=== PATIENT | male | born 1975 | race Caucasian/White ===

== ENCOUNTER 2018-10-18 07:40 | Outpatient (CLI) | payer OTHER ==
[2018-10-18] MEDS ORDERED: GADOBUTROL 10 MMOL/10 ML VIAL ONE (08:06)
[2018-10-18] MEDS ORDERED: GADOBUTROL 10 MMOL/10 ML VIAL IVP ONE (08:58)
--- NOTE | 2018-10-19 12:32 | MRI Report ---
Reason: LOCALIZED SWELLING, MASS LUMP, LEFT UPPER LIMB Procedure Date: 10/18/2018 Accession Number: [id number] / [id number] Procedure: MRI - Hand LT W/WO CPT Code: FULL RESULT: EXAM: LEFT HAND MRI WITHOUT AND WITH CONTRAST EXAM DATE: 10/18/2018 09:13 AM. CLINICAL HISTORY: Localized swelling or mass in the left upper limb. COMPARISON: None. TECHNIQUE: Multiplanar, multisequence T1-weighted and fluid-sensitive sequences of the hand before and after administration of intravenous contrast. IV contrast: 10 mL Gadavist. Other: None. FINDINGS: Bones: No fractures or subluxations. No marrow edema or abnormal enhancement. No bone lesions. Cartilage: The articular cartilage is unremarkable. Ligaments: The visualized collateral ligaments are intact. Tendons: The flexor and extensor tendons are unremarkable. Musculature: No edema or fatty atrophy. Other: No joint effusions or synovitis. A T2 hyperintense nodule volar to the second metacarpophalangeal joint measures 5 mm. This only has peripheral rim enhancement as it is consistent with a small ganglion cyst. IMPRESSION: 5 mm ganglion cyst volar to the second metacarpophalangeal joint. [facility]CULOSKELET[facility] RADIOLOGY SECTION
== END 2018-10-18 07:41 | disposition home or self-care (01) ==
LOC: DI 07:40
PROVIDERS: ATTEND Orthopaedic Surgery
DX: M67.442 Ganglion, left hand (principal)
CPT/HCPCS: 73220; A9585

== ENCOUNTER 2018-12-22 08:47 | Day surgery (SDC) | payer OTHER ==
[~2018-12-22 08:47] MED LIST: CLINDAMYCIN 600 MG/50 ML 50 ML IV ONE
[2018-12-22] MEDS ORDERED: LACTATED RINGERS 1,000 ML IV ONE (08:57)
--- NOTE | 2018-12-22 09:51 | ANESTHESIA ---
Pre-Anesthesia VS, & Labs - Diagnosis left index finger cyst - Procedure cystectomy left index finger Vital Signs: Temp Pulse Resp BP Pulse Ox 36 C L 72 16 124/79 98 12/22/18 08:58 12/22/18 08:58 12/22/18 08:58 12/22/18 08:58 12/22/18 08:58 Height 5 ft 10 in Weight (kg) 88 kg - NPO >8 hours Home Medications and Allergies Home Medications: Ambulatory Orders Citalopram Hydrobromide [Celexa] 20 mg PO DAILY 12/13/18 Varenicline Tartrate [Chantix] 1 mg PO DAILY 12/13/18 Citalopram Hydrobromide [Celexa] 20 mg PO DAILY 12/13/18 Varenicline Tartrate [Chantix] 1 mg PO DAILY 12/13/18 Allergies/Adverse Reactions: Allergies Allergy/AdvReac Type Severity Reaction Status Date / Time iodine Allergy Rash Verified 12/13/18 13:45 shellfish derived Allergy Rash Verified 12/13/18 13:45 Penicillins AdvReac Unknown Verified 12/13/18 13:45 Anes History & Medical History - Anesthetic History Anesthesia Complications: reports: No previous complications Family history of Anesthesia Complications: Denies Family history of Malignant Hyperthermia: Denies - Medical History Cardiovascular: reports: None Pulmonary: reports: None Gastrointestinal: reports: None Urinary: reports: None Musculoskeletal: reports: Other Skin: reports: None - Surgical History General: Other Eyes Ears Nose Throat (EENT): Myringotomy (tubes) Exam General: Alert, Oriented x3, Cooperative, No acute distress Dental: Other (caps) Mouth Openin Fingerbreadth Neck Mobility: Normal Mallampati classification: II Thyromental Distance: greater than 6 cm Respiratory: Lungs clear, Normal breath sounds, No respiratory distress, No accessory muscle use Cardiovascular: Regular rate, Normal S1, Normal S2, No murmurs Mental/Cognitive Status: Alert/Oriented X3, Normal for patient Cognitive Status: Within normal limits Plan Anesthesia Type: General Consent for Procedure(s) Verified and Reviewed: Yes Code Status: Attempt Resuscitation ASA classification: 1-Healthy patient Is this case an emergency?: No
[2018-12-22] MEDS ORDERED: BUPIVACAINE 0.5% PF 30 ML VIAL ONE (09:53)
[2018-12-22] MEDS ORDERED: BUPIVACAINE 0.5% PF 30 ML VIAL INFIL ONE (10:42)
[2018-12-22] MEDS ORDERED: PROPOFOL 200 MG/20 ML VIAL IVP ONE (11:16)
[2018-12-22] MEDS ORDERED: fentaNYL 100 MCG/2 ML VIAL IVP ONE (11:16)
[2018-12-22] MEDS ORDERED: ePHEDrine 50 MG/ML VIAL IVP ONE (11:16)
[2018-12-22] MEDS ORDERED: CLINDAMYCIN 600 MG/50 ML 50 ML IV ONE (11:16)
[2018-12-22] MEDS ORDERED: LIDOCAINE-MPF 2% 5 ML VIAL IM ONE (11:16)
[2018-12-22] MEDS ORDERED: HYDROcod/ACETAM 5/325 MG TABLET PO PRN (11:26)
--- NOTE | 2018-12-22 11:45 | OPERATIVE REPORT ---
Operative Report - General Planned Procedure: Left index finger volar flexor tendon sheath cyst excision Pre-Op Diagnosis: Left index finger volar flexor tendon sheath cyst Procedure Performed: Left index finger volar flexor tendon sheath cyst excision Post Op Diagnosis: Left index finger volar flexor tendon sheath cyst - Procedure Note Primary Surgeon: TON CUNNINGHAM Secondary Surgeon: JAKI AYON Anesthesia Technique: General LMA, Local Pathology: Left index finger volar cyst sent for permanent pathology Estimated Blood Loss (mL): 5 - Other Other Information/Narrative: Tourniquet Time: 31 minutes at 250mmHg. Specimen(s) Information: Left index finger volar flexor tendon sheath cyst Complication(s): None Condition: Stable to recovery Indications for Surgery: The patient is a 43-year-old left hand dominant male with a 7 month history of a left volar hand mass. The mass appeared to overlie the volar surface of the index finger A1 miguel, on the ulnar side. Exam demonstrated a palpable, tender mass in the aforementioned location. Xrays were normal. MRI demonstrated a T2 hyperintense well-circumscribed mass just volar to the left index finger flexor tendon sheath, the mass was discrete from the ulnar neurovascular bundle of the index finger. The patient was counseled on treatment options to include continued nonoperative treatment in the form of activity modification, possible aspiration of the mass versus surgical excision. Risks of surgery were discussed to include bleeding, infection, postoperative wrist stiffness, mass recurrence, damage to nerves, vessels, tendons, ligaments, bone and cartilage and anesthesia complications to include medication side effects and allergic reactions and even . After a long discussion, they wished to proceed. Findings: Left index finger volar flexor tendon sheath cyst with clear gelatinous fluid Descriptions of Procedure: The patient was met in the Preoperative Holding Area, at which time preoperative paperwork was confirmed. The left hand was signed. The patient was then brought to Main Operating Room, placed supine on the Operating Room table, at which time pre procedure timeout was conducted to confirm correct patient, correct extremity and correct procedure and also to confirm presence and sterility of all required equipment and to confirm that antibiotics were being administered. After this was confirmed, general anesthesia was induced. The operative extremity was then prepped and draped over a hand table in the normal sterile fashion after a well-padded tourniquet was placed on the proximal arm. A final timeout was conducted to confirm the correct patient, correct extremity and correct procedure and to confirm that antibiotics had been administered within 30 minutes of incision time. The operative extremity was then exsanguinated with an Esmarch bandage and tourniquet inflated to 250mmHg. A Chevron incision with approximately 2 cm limbs was made over the left index finger A1 miguel, in the region of the distal palmar crease with a #15 blade through the skin. Dissection was further carried out with tenotomy scissors and retractors until the mass was visualized on the volar surface of the flexor tendon sheath. The mass was carefully dissected, r emoving all soft tissue attachments surrounding the mass down to the flexor tendon sheath. The mass was then excised off of the flexor tendon sheath. The mass contained homogeneous gelatinous material consistent with a ganglion cyst of the flexor tendon sheath. The mass was then passed off the back table in a sterile specimen cup fixed in formalin. A small rectangle of the A1 miguel was excised and the wound was palpated to ensure no cystic mass remained. The wound was then copiously irrigated. The skin was then closed with 4-0 nylon in interrupted horizontal mattress and simple interrupted fashion. 10 mL of half percent plain Marcaine were injected around the incision. The wound was dressed with xeroform, plain 4x4 gauze, fluffs, loosely applied jon followed by a gently compressive Lucho bandage. The tourniquet was let down. The patient was then awakened from general anesthesia without complication, brought to the Post Anesthesia Care for further recovery. Postoperative Plan: 1. The patient will be discharged from the Same Day Surgery Unit when discharge criteria are met. 2. The patient will remain in the post-operative dressing until follow-up. 3. They have been instructed to start early finger ROM and not to lift anything heavier than a cup of coffee until follow-up. 4. Expect return to full activities in 4-6 weeks.
[2018-12-22 12:05] VITALS: BP 131/75
== END 2018-12-22 08:48 | disposition home or self-care (01) ==
LOC: SDS 08:47
PROVIDERS: ATTEND Orthopaedic Surgery
PROC: 0LB80ZZ Excision of Left Hand Tendon, Open Approach (ICD-10-PCS; principal; 2018-12-22 11:00)
DX: M67.844 Other specified disorders of tendon, left hand (principal); F17.200 Nicotine dependence, unspecified, uncomplicated
CPT/HCPCS: 26160; J7120

== ENCOUNTER 2021-04-17 07:45 | Outpatient (CLI) | payer OTHER ==
--- NOTE | 2021-04-17 08:41 | SLEEP CARE CONSULTATION ---
Information from patient questionnaire entered by Jacqui Mullen. I have reviewed and concur with the information entered by Jacqui Mullen. This document represents the service I personally performed and the decisions made by me, Rosemary Martinez ARNP. History of Present Illness Service Date and Time: 04/17/2021 0745 Reason for Visit: New patient Chief Complaint: reports: Insomnia, Unrefreshed sleep, Snoring, Excessive daytime sleepiness, Frequent awakenings at night Date of Onset: mulitple years Usual bedtime: 9:30 pm Time it takes to fall asleep: 1 hour or more Snores at night: Yes Observed to quit breathing while asleep: No Sleeps alone due to snoring: Yes Number of times waking at night: 3-5 Reasons for waking at night: reports: Snoring, Other (unknown reasons). denies: Choking, Gasping for air Toss, Turn, or Twitch while sleeping: Yes Recalls having dreams: Yes Usually gets out of bed at: 5 am; weekends about 7 AM Feels refreshed in the morning: No Morning headache: No Sleepy or fatigued during the day: Yes Ever fallen asleep while driving: Yes (drowsy driving, no accidents; only on longer drives) Takes day naps: Yes (1 x a week for about 30 mins) Dreams during day naps: Yes Prior sleep studies: No Additional HPI information: I had the pleasure of seeing MARYANNE GONSALEZ today regarding the possibility of him having a sleep disorder. His current complaints are insomnia, excessive daytime sleepiness, fatigue, frequent night awakenings, snoring and unrefreshed sleep. His has told him he snores like a "freight train" and he wants to get better sleep. He states he does not wake up feeling rested most days. His was not sure if he had any pauses in breathing or choking/gasping in his sleep. He states it usually takes him an hour or so to fall asleep. He usually reads in bed before going to sleep for that time. He can wake up hourly throughout the night at times for no apparent reasons. He has woken himself up snoring. He also tells me that when he is about to fall asleep his left leg will become tense and then twitch. He states it doesn't happen every night. He states his father has sleep apnea and is on a PAP machine. - Parasomnia Symptoms Ever been unable to move upon waking from sleep: Yes Walks in sleep: No Talks in sleep: Yes Ever acted out dreams in sleep: Yes Ever felt weak in the knees when startled or emotional: No Bothered by creepy, crawly, restless sensations in legs: Yes (mostly at night, almost always the left leg, has sciatica in this leg) Problems with memory or concentration: Yes (both, memory bad these days) Subjective Initial [place] Sleepiness Scale score: 14 (in 2020) Past Medical History Past Medical History: reports: Hypertension (no medication at this time), Anxiety, GERD, Attention deficit, Other (sciatica) Social History The patient's occupation is a Active . Patient is and lives in [place]. Have you smoked in the past 12 months: Yes Cigarettes per day (20/pack): 10 Years of smokin Smoking Pack Years: 10.0 Alcohol use: Yes Alcohol amount and frequency: 1-3 drinks a week Caffeine use: Yes Caffeine amount and frequency: 12 oz 2-3 a day when working Family History Family history of sleep disordered breathing: Yes Family Hx Sleep Apnea: Father: Snoring, Sleep apnea - Treated Allergies and Home Medications Drug allergies reviewed: Yes (penicillin, iodine, shellfish) Home medication list reviewed: Yes Allergy and home medication list: Celexa Multivitamin Pepcid, as needed for heartburn Review of Systems Weight gain over past 5 years: 20 Cardiovascular: reports: high blood pressure Gastrointestinal: reports: heartburn Neurological: denies: headaches Psychiatric: reports: Attention Deficit Hyperactivity, anxiety. denies: mood disorder Ear/Nose/Throat: reports: wisdom teeth removed. denies: tonsillectomy Endocrine: denies: thyroid disease Musculoskeletal: reports: joint pain, back pain, other (sciatica) Immunologic: reports: allergies to food or environment (shellfish) Physical Exam Blood Pressure: 135/92 Cuff size: wrist Heart Rate: 90 O2 Saturation: 98 Height: 5 ft 10 in Weight: 210 lb (with boots) Body Mass Index: 30.1 BMI Classification: Obese Neck circumference: 17 (inches) Mouth and throat: narrow oropharynx Soft palate: long Hard palate: normal Uvula: normal Uvula visualization: 50% Mallampati Class II Tongue: enlarged in size with teeth starr on lateral edges Tonsils: 1+ Neck: normal w/o lymphadenopathy or thyromegaly Heart: regular rate and rhythm Lungs: clear bilaterally Impression and Plan 1. Suspected Obstructive Sleep Apnea-Hypopnea Syndrome, as suggested by a history of loud and irregular snoring, frequent awakening during the night, unrefreshed sleep, cognitive impairment, and excessive daytime sleepiness. Narrow oropharynx and obesity are common predisposing factors for obstructive sleep apnea-hypopnea syndrome. I recommend proceeding to polysomnography to confirm the diagnosis and to assess severity. If the patient has significant sleep disordered breathing, a manual CPAP titration study will also be performed to find the optimal treatment pressure. I informed the patient of what the sleep studies involve and after some discussion, obtained agreement to proceed. The pathophysiology of obstructive sleep apnea-hypopnea syndrome was discussed with the patient and health risks of cardiovascular and cerebrovascular disease if not treated. AAS brochure for obstructive sleep apnea-hypopnea syndrome given and reviewed. Risks of drowsy driving discussed in detail and patient advised to avoid long distance driving and to fur puller at the first sign of drowsiness. Patient agreed to plan. * Schedule polysomnography +- manual CPAP titration study and return in 1-2 weeks after the study to discuss result and initiate therapy. * Avoid long distance driving or driving when feeling sleepy. * Avoid alcohol, sedative and muscle relaxant around bedtime. * Attempt to lose weight. * Review instructions provided by trained office staff on how to prepare for the sleep study. * Return for follow-up after sleep study completed. Counseling Topics: Weight loss health impact Visit Type: In Office Time Spent with Patient (minutes): 30 Provider Statement: I spent 100% of the Face to Face Visit with the patient with greater than 50% spent counseling the patient and coordination of care.
[2021-04-17 08:42] VITALS: BP 135/92
== END 2021-04-17 07:46 | disposition home or self-care (01) ==
LOC: SC 07:45
PROVIDERS: ATTEND Nurse Practitioner Family
DX: R06.83 Snoring (principal); G47.10 Hypersomnia, unspecified; G47.8 Other sleep disorders; R41.89 Other symptoms and signs involving cognitive functions and awareness; E66.9 Obesity, unspecified; Z68.30 Body mass index [BMI] 30.0-30.9, adult; F17.210 Nicotine dependence, cigarettes, uncomplicated
CPT/HCPCS: 99203; 99212

== ENCOUNTER 2021-06-04 19:35 | Outpatient (CLI) | payer OTHER | END 2021-06-04 19:36 | disposition home or self-care (01) | LOC: SC 19:35 | PROVIDERS: ATTEND Nurse Practitioner Family | DX: G47.33 Obstructive sleep apnea (adult) (pediatric) (principal); G47.61 Periodic limb movement disorder; E66.9 Obesity, unspecified; Z68.30 Body mass index [BMI] 30.0-30.9, adult | CPT/HCPCS: 95810 ==

== ENCOUNTER 2021-06-30 09:46 | Outpatient (CLI) | payer OTHER ==
--- NOTE | 2021-06-30 10:37 | SLEEP CARE CONSULTATION ---
Information from patient questionnaire entered by Jacqui Mullen. I have reviewed and concur with the information entered by Jacqui Mullen. This document represents the service I personally performed and the decisions made by me, Timur Waters MD, [facility]. History of Present Illness Service Date and Time: 06/30/2021 0946 Initial [place] Sleepiness Scale score: 14 (in 2020) Current [place] Sleepiness Scale score: 17 Additional HPI information: HPI: Mr. Lemus returned for follow up of the sleep study he had on 06/04/2021. The polysomnography showed that The sleep architecture was abnormal for sleep fragmentation and reduced amount of time spent in slow wave sleep (N3). Respiratory monitoring showed mild obstructive sleep apnea-hypopnea (AHI = 7.7) associated with frequent arousals, oxyhemoglobin desaturation and mild hypoxia (geovany oxygen saturation of 87%). The respiratory events occurred almost exclusively during supine sleep (supine AHI = 15.0; non-supine = 3.13). Snore was light in intensity. There was moderate periodic leg movement of sleep not contributing to the sleep fragmentation. Cardiac rhythm was normal sinus rhythm without significant arrhythmia. No abnormal behavior (parasomnia) observed during the night. The patient was informed of these findings. I explained to him the pathophysiology behind obstructive sleep apnea. We then spent quite a bit of time discussing different treatment options. For mild obstructive sleep apnea, surgery and oral appliance are alternatives to nasal CPAP therapy but in moderate or severe cases, nasal CPAP is the most effective and reliable treatment. Weight loss in an obese individual is strongly recommended. After some discussion, he opted to go with the nasal CPAP therapy. I explained to him how CPAP machine works and what to expect when using the machine. He is encouraged to use CPAP every night especially in the first 2 to 3 nights in order to get used to it. He should call his CPAP supplier or me to discuss any mechanical problem that may occur. If he snores or feels like he is not getting enough air from the machine, he should notify me and I will increase the pressure. Sleep Study - Results Type of Sleep Study: Polysomnography Prior sleep studies: No Allergies and Home Medications Drug allergies reviewed: Yes Home medication list reviewed: Yes Review of Systems Review of systems same as previous: Yes Physical Exam Height: 5 ft 10 in Weight: 210 lb Body Mass Index: 30.1 BMI Classification: Obese Impression and Plan IMPRESSION: 1. Obstructive Sleep Apnea-Hypopnea Syndrome, mild, associated with mild hypoxemia and sleep fragmentation. Possibly, this is the cause of the patients symptoms of unrefreshed sleep, and excessive daytime sleepiness. As mentioned above, the patient will be started on autoCPAP set between 5 and 15 cmH2O. Depending on his response and compliance he may be brought back for an overnight CPAP titration study. 2. Periodic leg movement of sleep with restless leg syndrome. The cause of periodic leg movement of sleep is typically unknown. Few known causes are iron deficiency, renal failure, and selective serotonin reuptake inhibitors. Iron and ferritin levels are recommended in addition to the routine blood work. The patient is taking citalopram which can aggravate the condition. PLAN: 1. Prescription made for an autoCPAP, heated humidifier, and related supplies. 2. Attempt to lose weight and avoid alcohol consumption near bedtime. 3. Primary care provider to check iron, ferritin, and renal function 4. Avoid sleeping supine if not using the CPAP. 5. Return for follow up after one month of using the CPAP. If he relocates to [place], he should find himself a sleep physician there. Counseling Topics: Weight control Follow up with Sleep Care in: 1-2 months Follow up with: PCP Visit Type: In Office Time Spent with Patient (minutes): 15 Provider Statement: I spent 100% of the Face to Face Visit with the patient with greater than 50% spent counseling the patient and coordination of care.
== END 2021-06-30 09:47 | disposition home or self-care (01) ==
LOC: SC 09:46
PROVIDERS: ATTEND Internal Medicine Pulmonary Disease
DX: G47.33 Obstructive sleep apnea (adult) (pediatric) (principal); G47.61 Periodic limb movement disorder; E66.9 Obesity, unspecified; Z68.30 Body mass index [BMI] 30.0-30.9, adult
CPT/HCPCS: 99212